=== PATIENT | female | born 1995 | race Two or more races ===

== ENCOUNTER → 2025-02-09 | Outpatient (CLI) | payer MEDICAID, SELFPAY ==
[2025-02-09 11:08] LABS: Basophils % (Auto) 0 % (0-2.5); Eosinophils # (Auto) 0.1 Thou/mm3 (0.0-0.5); Eosinophils % (Auto) 1 % (0-10); Hematocrit 37.4 % (36.0-46.0); Hemoglobin 12.6 g/dL (12.0-16.0); Immature Granulocytes % (Auto) 0 % (0-0); Immature Granulocytes Auto 0.03 Thou/mm3 (0.00-0.00); Lymphocytes # (Auto) 2.7 Thou/mm3 (1.0-4.8); Lymphocytes % (Auto) 31 % (10-50); Mean Corpuscular HGB Conc 33.7 g/dl (31.0-37.0); Mean Corpuscular Hemoglobin 28.5 pg (25.0-35.0); Mean Corpuscular Volume 85 fL (80-100); Monocytes # (Auto) 0.5 Thou/mm3 (0.0-0.8); Monocytes % (Auto) 6 % (0-12); Neutrophils # (Auto) 5.3 Thou/mm3 (1.8-7.7); Neutrophils % (Auto) 62 % (37-80); Nucleated Red Blood Cell % 0 /100 WBC (0); Platelet Count 222 Thou/mm3 (140-440); RDW Standard Deviation 43.6 fL (36.4-46.3); Red Blood Count 4.42 Miln/mm3 (4.00-5.20); White Blood Count 8.6 Thou/mm3 (3.6-11.0)
[2025-02-09 11:23] LABS: INR 0.9 (0.9-1.3); Partial Thromboplastin Time 28.2 Seconds (22.0-36.0); Prothrombin Time 10.3 Seconds (9.0-12.2)
[2025-02-09 11:35] LABS: Alanine Aminotransferase 7 U/L (10-49); Albumin, Serum 3.8 gm/dL (3.5-5.0); Albumin/Globulin Ratio 1.5 (1.2-2.2); Alkaline Phosphatase 117 U/L (46-116); Anion Gap 11 (7-16); Aspartate Amino Transferase 12 U/L (0-34); BUN/Creatinine Ratio 12 Ratio (12-20); Bilirubin,Total 0.4 mg/dL (0.3-1.2); Blood Urea Nitrogen 7 mg/dL (9-23); Calcium 8.4 mg/dL (8.3-10.6); Calcium (Corrected) 8.6 mg/dL (8.5-10.1); Carbon Dioxide 20.5 mMol/L (20.0-31.0); Chloride 107 mMol/L (98-107); Creatinine (Component) 0.6 mg/dL (0.6-1.3); Globulin 2.6 gm/dL (2.3-3.5); Glucose 86 mg/dL (74-106); Osmolality,Calculated 272 (275-295); Potassium 4.1 mMol/L (3.4-5.1); Sodium 138 mMol/L (136-145); Total Protein 6.4 gm/dL (5.7-8.2); eGFR > 60 See Note
[2025-02-09 11:43] LABS: Syphilis Nonreactive (Nonreactive)
== END | disposition home or self-care (01) ==
LOC: COPL 10:19
PROVIDERS: PCP Family Medicine; Referring Provider Specialist; Visit Provider Specialist
DX: Z34.83 Encounter for supervision of other normal pregnancy, third trimester (principal)
CPT/HCPCS: 36415; 80053; 85025; 85610; 85730; 86780; 86900; 86901

== ENCOUNTER 2025-02-12 10:24 | Inpatient (IN) | payer MEDICAID, SELFPAY ==
--- NOTE | 2025-02-09 15:33 | ESHP_ITS ---
RE: TIMA ORTEGA : 1995 DATE OF ADMISSION: 02/12/2025 HISTORY OF PRESENT ILLNESS: This is a 29-year-old 3, para 1-0-1-1 with a due date of 02/24/2025 with intrauterine at 38 weeks and 2 days on 02/12/2025 who presents for repeat delivery with borderline systolic hypertension. The patient's care was complicated by borderline systolic hypertension without the need for antihypertensives. She has had no complications during her . She reports normal movement. She denies any leaking or bleeding. She reports occasional contractions. She desires future fertility. ALLERGIES: NO KNOWN DRUG ALLERGIES. MEDICATIONS: 1. multivitamin 1 tablet p.o. daily. 2. Aspirin 81 mg 1 p.o. daily. She discontinued this on 02/09/2025. PAST MEDICAL HISTORY: Systolic hypertension. SOCIAL HISTORY: She denies any alcohol, drug use, or smoking. OBSTETRIC HISTORY: 03/2021, 6 weeks spontaneous AB, no D and C. 12/2022, 38 weeks delivery, 5 pounds 4 ounce female complicated by gestational hypertension. PAST SURGICAL HISTORY: delivery in 2022. REVIEW OF SYSTEMS: She denies any headache, change in vision, or right upper quadrant pain. She denies any chest pain, palpitations, shortness of breath, or lower extremity pain. PHYSICAL EXAMINATION: VITAL SIGNS: Blood pressure 132/75, heart rate 88, respirations 18, temperature 98.6, weight 215 pounds. HEENT: Oropharynx and sclerae are clear. LUNGS: Clear to auscultation bilaterally. HEART: Regular rate and rhythm. ABDOMEN: Old Pfannenstiel scar noted, gravid, term size. EXTREMITIES: Nontender. SKIN: No gross rashes or lesion. NEUROLOGIC: No focal deficit. ASSESSMENT: Intrauterine at 38 weeks and 2 days on 02/12/2025, previous delivery, elects repeat delivery. Borderline systolic hypertension. PLAN: Repeat delivery. Informed consent was obtained. The patient was made aware of the risks, complications, alternatives, benefits of the proposed procedure and she agrees. DT: 14:05:25 TT: 15:28:00 Ref: [id number] - TID: [id number] [facility]
[2025-02-12] VITALS (17 sets, daily range): BP systolic 92–130; BP diastolic 51–93; PULSE 52–98; RESP 12–20; TEMP 36.8–36.9; O2SAT 97–100; BMI 39.4
[2025-02-12] MEDS: RINGERS LACTATED 1000 ML 1,000 ML 100 ML IV (10:55)
[2025-02-12 11:41] LABS: Basophils % (Auto) 0 % (0-2.5); Eosinophils # (Auto) 0.1 Thou/mm3 (0.0-0.5); Eosinophils % (Auto) 1 % (0-10); Hemoglobin 12.6 g/dL (12.0-16.0); Immature Granulocytes % (Auto) 0 % (0-0); Immature Granulocytes Auto 0.04 Thou/mm3 (0.00-0.00); Lymphocytes # (Auto) 2.7 Thou/mm3 (1.0-4.8); Lymphocytes % (Auto) 26 % (10-50); Mean Corpuscular HGB Conc 33.2 g/dl (31.0-37.0); Mean Corpuscular Hemoglobin 28.7 pg (25.0-35.0); Mean Corpuscular Volume 87 fL (80-100); Monocytes # (Auto) 0.7 Thou/mm3 (0.0-0.8); Monocytes % (Auto) 7 % (0-12); Neutrophils # (Auto) 6.7 Thou/mm3 (1.8-7.7); Neutrophils % (Auto) 66 % (37-80); Nucleated Red Blood Cell % 0 /100 WBC (0); Platelet Count 226 Thou/mm3 (140-440); RDW Standard Deviation 45.2 fL (36.4-46.3); Red Blood Count 4.39 Miln/mm3 (4.00-5.20); White Blood Count 10.3 Thou/mm3 (3.6-11.0)
[2025-02-12] MEDS: FAMOTIDINE INJ 10 MG/ML VIAL 2 ML 20 MG IV (12:24)
[2025-02-12] MEDS: ceFAZolin/D5W 2 GM IV 2 GM/100 ML BAG IV (12:24)
[2025-02-12] MEDS: METOCLOPRAMIDE INJ 5 MG/ML VIAL 2 ML 10 MG IVP (12:31)
[2025-02-12 12:34] LABS: Syphilis Nonreactive (Nonreactive)
--- NOTE | 2025-02-12 13:33 | PD.LDDS ---
DS: Providers Provider Date of admission: 02/12/25 10:24 Primary care physician: Sundar Snowden MD Admitting Provider: Kang Pascual MD Attending Provider on Admission: Kang Pascual MD Attending Provider on DC: Kang Pascual MD Discharging Provider: Kang Pascual MD DS: Diagnosis Problem List Completed Was Problem List Reviewed/Reconciled?: Yes Summary/Hosp Course Peripartum Data Delivery Method: Operative Vaginal Delivery Episiotomy Description: None Procedures: Procedures Operation Date: 02/12/25 12:45 Actual Procedure Side Surgeon p in OB Kang Pascual MD Time Spent with Patient Time attestation: Total time spent providing and/or coordinating discharge services: Exam Vital Signs Pulse BP Pulse Ox 73 130/93 H 100 02/12/25 12:29 02/12/25 12:29 02/12/25 10:43 Discharge Plan Plan Patient Disposition: HOME (Self Care) Patient condition on transfer: Stable Prescriptions/Referrals Prescriptions/Med Rec: New ibuprofen 600 mg tablet 600 mg PO Q6H PRN (Reason: pain) Qty: 30 0RF PNV cmb#[id number]-ferrous fumarate-FA [ Formula] 28 mg iron- 800 mcg tablet 1 tab PO QDAY Qty: 90 3RF Referrals: Sundar Snowden MD [Primary Care Provider] - Patient/Caregiver Discharge Instructions Discharge Activity: activity as tolerated Other Discharge Activity Instructions:: Follow up office 1 week. Education Materials: C Section Dc Print Language: Luxembourgish Stand Alone Forms: Erika Award Info., Patient Portal Info Letter Discharge Order Discharge Orders: Discharge (Routine); Ordered 02/14/25 Ordered By: Kang Pascual Planned Discharge Date 02/14/25
--- NOTE | 2025-02-12 13:34 | PD.LDDELS ---
Data (Herrera) Data Hx Section: Yes : 3 Delivery Data (Herrera) Labor Data Induction/Augmentation Agent: None ROM date: 02/12/25 ROM time: 13:08 Amniotic membrane rupture type: Artificial Amniotic fluid description: Clear Delivery Data EDC: 02/13/25 EDC calculated by:: LMP/early US confirmation delivery date: 02/12/25 [place] delivery time: 13:09 Gestational age (weeks): 38 Gestational age (days): 2 Placenta delivery date: 02/12/25 Placent[place] delivery time: 13:10 Delivered by: Delivery nurse: Priti Gomez nurse: Ayleen Merrill Delivery Method Delivery method: Low Transverse Presentation: Vertex position: OP Anesthesia Type Anesthesia Type: None Placenta Placenta delivery description: Manual Removal Cord blood sent to lab: Yes cord blood collection: Cord Blood Type Episiotomy Episiotomy description: None EBL Estimated blood loss (ml): 500 Umbilical Cord cord description: 3 Vessels and Nuchal Cord Additional Procedures None Complications Complications: None Data (Herrera) [place] Data 's gender: Female Identification band number: [id number] weight (gms): 6 lb 1.003 oz Weight (pounds): 6 lbs and 1.0 ozs length: 18.5 in 1 minute: 9 5 minutes: 9
[2025-02-12] MEDS: OXYTOCIN in NS 20 units 20 UNIT/1,000 ML BAG 125 UNIT IV ×2 (14:32→21:45)
[2025-02-12] MEDS: ONDANSETRON INJ 2 MG/ML INJ 2 ML 4 MG IV (15:33)
[2025-02-12] MEDS: KETOROLAC INJ 30 MG/ML VIAL IVP (17:21)
[2025-02-12 20:28] LABS: Basophils % (Auto) 0 % (0-2.5); Eosinophils % (Auto) 0 % (0-10); Hematocrit 34.9 % (36.0-46.0); Immature Granulocytes % (Auto) 0 % (0-0); Immature Granulocytes Auto 0.05 Thou/mm3 (0.00-0.00); Lymphocytes # (Auto) 2.9 Thou/mm3 (1.0-4.8); Lymphocytes % (Auto) 22 % (10-50); Mean Corpuscular HGB Conc 34.4 g/dl (31.0-37.0); Mean Corpuscular Hemoglobin 29.1 pg (25.0-35.0); Mean Corpuscular Volume 85 fL (80-100); Monocytes # (Auto) 0.7 Thou/mm3 (0.0-0.8); Monocytes % (Auto) 6 % (0-12); Neutrophils # (Auto) 9.4 Thou/mm3 (1.8-7.7); Neutrophils % (Auto) 71 % (37-80); Nucleated Red Blood Cell % 0 /100 WBC (0); Platelet Count 191 Thou/mm3 (140-440); RDW Standard Deviation 43.5 fL (36.4-46.3); Red Blood Count 4.13 Miln/mm3 (4.00-5.20); White Blood Count 13.1 Thou/mm3 (3.6-11.0)
[2025-02-13 00:21] VITALS: BP 114/70; PULSE 84; RESP 18; TEMP 36.7; O2SAT 97
[2025-02-13] MEDS: KETOROLAC INJ 30 MG/ML VIAL IVP (00:30)
[2025-02-13 04:12] VITALS: BP 108/66; PULSE 87; RESP 20; TEMP 36.9; O2SAT 98
[2025-02-13 07:32] VITALS: BP 107/71; PULSE 84; RESP 17; TEMP 36.7; O2SAT 98
--- NOTE | 2025-02-13 07:33 | PD.LDPPPRG ---
Subjective Subjective Interval history: Patient denies any problem or complaint. She is voiding, and ambulating and tolerating a regular diet. She denies any excessive vaginal bleeding or dizziness or lightheadedness. She is passing flatus. She denies any chest pain, palpitations, shortness of breath or lower extremity pain. Exam Vital Signs Temp Pulse Resp BP Pulse Ox O2 Del Method 98.4 F 87 20 108/66 98 Room Air 02/13/25 04:12 02/13/25 04:12 02/13/25 04:12 02/13/25 04:12 02/13/25 04:12 02/13/25 04:12 Routine Respiratory Exam Comments: Clear to auscultation bilaterally Routine Cardiovascular Exam Comments: Regular rate and rhythm Routine Abdominal Exam Comments: Dressing dry and intact. Nondistended. Routine Extremities Exam Comments: Nontender. Objective Labs 02/12/25 20:18 Labs: Laboratory Results - last 24 hr 02/12/25 02/12/25 02/12/25 11:15 11:24 20:18 WBC 10.3 13.1 H RBC 4.39 4.13 Hgb 12.6 12.0 Hct 38.0 34.9 L MCV 87 85 MCH 28.7 29.1 MCHC 33.2 34.4 RDW Std Deviation 45.2 43.5 Plt Count 226 191 D Neut % (Auto) 66 71 Lymph % (Auto) 26 22 [place] % (Auto) 7 6 Eos % (Auto) 1 0 Baso % (Auto) 0 0 Neut # (Auto) 6.7 9.4 H Lymph # (Auto) 2.7 2.9 [place] # (Auto) 0.7 0.7 Eos # (Auto) 0.1 0.0 Baso # (Auto) 0.0 0.0 Immature Gran # (Auto) 0.04 H 0.05 H Absolute Nucleated RBC 0.00 0.00 Immature Gran % 0 0 Nucleated RBC % 0 0 Syphilis Serology Nonreactive Blood Type O Positive Antibody Screen NEGATIVE Blood Bank Wristband ID Yes Assessment & Plan Assessment Comment Assessment comment: Postop day #1 status post delivery Plan Comment Plan Comment: Remove dressing. Encourage ambulation. support. Possible discharge home tomorrow. Time Spent With Patient Time: Total time spent is greater than 50% in coordination of care (as documented) at patient's floor/unit and/or counseling patient:
[2025-02-13] MEDS: ENOXAPARIN SOD INJ 40 MG/0.4 ML SYRINGE SC (08:10)
[2025-02-13] MEDS: DOCUSATE SOD 100 MG CAPSULE PO (08:11)
[2025-02-13] MEDS: IBUPROFEN TAB 400 MG TABLET 800 MG PO ×2 (08:15→16:15)
[2025-02-13 11:27] VITALS: BP 98/60; PULSE 74; RESP 18; TEMP 36.8; O2SAT 98
--- NOTE | 2025-02-13 14:40 | ESOP_ITS ---
RE: TIMA ORTEGA : 1995 DATE OF OPERATION: 02/12/2025 PREOPERATIVE DIAGNOSES: Intrauterine at 38 weeks and 2 days, previous delivery, elects to repeat delivery, mild systolic hypertension. POSTOPERATIVE DIAGNOSES: Intrauterine at 38 weeks and 2 days, previous delivery, elects to repeat delivery, mild systolic hypertension, adenomyosis of the uterus and endometriosis of the ovaries, stage I. PROCEDURE PERFORMED: Repeat low transverse section via Pfannenstiel skin incision. SURGEON: Kang Pascual DO. VIDEO PRODUCTION COORDINATOR: DONNA Ha. ANESTHESIA: Spinal. ANESTHESIOLOGIST: Enzo Davey CRNA. ESTIMATED BLOOD LOSS: 500 mL. COMPLICATIONS: None. COUNTS: Correct. PATHOLOGY: None. FINDINGS: A live female , cephalic presentation, nuchal cord, clear amniotic fluid, Apgars 9 and 9, weight 6 pounds 1 ounce. Superficial endometriotic implants on both ovaries and uterosacral ligaments. Adenomyosis of the uterus. Placenta removed complete and intact. DESCRIPTION OF PROCEDURE: After proper informed consent was obtained and the patient made aware of the risks, complications, alternatives, and benefits of the proposed procedure, she was taken to the operating room where she underwent induction of spinal anesthesia. She was placed in the dorsal supine position. She was prepped and draped in the usual sterile fashion. A timeout was performed. A Pfannenstiel skin incision was made with the scalpel and carried through to the underlying layer of fascia with the Bovie. The fascia was nicked in the midline. Incision extended bilaterally with the Bovie. The inferior aspect of fascia incision was grasped with Cynthia clamps and elevated. The underlying rectus muscle was dissected off with the Bovie. The rectus muscles were in the midline. The peritoneum identified between 2 Chinchilla clamps and entered sharply with the Metzenbaum scissors. The incision was extended superiorly and inferiorly with good visualization of the bladder. The bladder blade was then inserted. Vesicouterine peritoneum was incised transversely and bladder flap created digitally. The bladder blade was reinserted. Lower uterine segment was incised in transverse fashion with scalpel. The incision was extended bilaterally digitally. The infant's head delivered. Mouth and nose suctioned with bulb suction. Nuchal cord reduced. Shoulder and body delivered atraumatically. The cord was clamped and cut. The sent off to awaiting pediatric staff. Cord blood and gases were sent. Placenta was then removed manually. The uterus was exteriorized and cleared of all clots and debris. The uterine incision was repaired with #1-0 chromic catgut suture in running locking fashion. Second layer of the same suture was used to imbricate the first layer and obtained excellent hemostasis. The vesicouterine peritoneum was closed with 2-0 chromic catgut suture in a running fashion. The uterus was returned to the abdomen. The gutter was cleared of all clots and debris. The peritoneum was closed with 0 chromic catgut suture in running fashion. The muscle was closed with 0 chromic catgut suture in running fashion. The fascia was closed with 0 Vicryl beginning at each angle and ending in center in running fashion. Subcutaneous tissue was irrigated with normal saline solution, found to be hemostatic and closed with 2-0 chromic catgut suture in running fashion. Skin was closed with 4-0 Monocryl. A Dermabond Prineo dressing was applied. A sterile pressure dressing was applied. She tolerated the procedure well. Counts were correct. I discussed with the patient the nature of her condition, intraoperative findings, and expectation for recovery. All questions answered. DT: 13:41:42 TT: 17:35:00 Ref: [id number] - TID: [id number]
[2025-02-13 21:55] VITALS: BP 117/78; PULSE 81; RESP 16; TEMP 37.2; O2SAT 98
[2025-02-14] MEDS: IBUPROFEN TAB 400 MG TABLET 800 MG PO ×2 (00:17→08:38)
[2025-02-14 04:00] VITALS: BP 117/79; PULSE 80; RESP 18; TEMP 36.8; O2SAT 97
--- NOTE | 2025-02-14 06:53 | ESPR_ITS ---
RE: TIMA ORTEGA : 1995 DATE OF SERVICE: 02/14/2025 SUBJECTIVE: Postop day #2. The patient denies any problem or complaints. She is voiding and ambulating and tolerating her diet and passing flatus. She denies any excessive vaginal bleeding, dizziness, lightheadedness, chest pain, palpitations, shortness of breath, or lower extremity pain. OBJECTIVE: Vital Signs: Blood pressure 117/79, heart rate 80, respirations 18, temperature 98.2, pulse oximetry 97% on room air. Lungs: Clear to auscultation bilaterally. Heart: Regular rate and rhythm. Abdomen: Nondistended. Incision is clear and intact. Extremities: Nontender. ASSESSMENT: Postop day #2 status post delivery. PLAN: Discharge home. Discharge instructions given. Follow up in the office in 1 week. DT: 06:44:20 TT: 06:53:00 Ref: [id number] - TID: [id number]
[2025-02-14 08:00] VITALS: BP 136/92; PULSE 79; RESP 16; TEMP 36.7; O2SAT 97
[2025-02-14] MEDS: ENOXAPARIN SOD INJ 40 MG/0.4 ML SYRINGE SC (08:25)
[2025-02-14] MEDS: DOCUSATE SOD 100 MG CAPSULE PO (08:25)
[2025-02-14 11:46] VITALS: BP 111/74; PULSE 85; RESP 16; TEMP 37.7
== END 2025-02-14 13:43 | disposition home or self-care (01) | DRG 540 ==
LOC: S4SX 10:33 → S4NX 12:48
PROVIDERS: Admitting Provider Specialist; PCP Family Medicine; Visit Provider Obstetrics & Gynecology
PROC: 10D00Z1 Extraction of Products of Conception, Low, Open Approach (ICD-10-PCS; CPT 59514; principal; 2025-02-12 12:30)
DX: O34.211 Maternal care for low transverse scar from previous cesarean delivery (principal); O16.4 Unspecified maternal hypertension, complicating childbirth; Z37.0 Single live birth; O69.81X0 Labor and delivery complicated by cord around neck, without compression, not applicable or unspecified; Z3A.38 38 weeks gestation of pregnancy; N80.03 Adenomyosis of the uterus; Z79.82 Long term (current) use of aspirin
CPT/HCPCS: 36415; 59409; 85025; 86780; 86850; 86900; 86901; 94762; A4649; J0689; J1650; J1885; J2175; J2250; J2274; J2371; J2405; J2590; J2765; J3010; J3490; J7120; A9270; J2270